=== PATIENT | female | born 1960 | race Caucasian/White ===

== ENCOUNTER 2021-11-16 19:24 | Emergency (ER) | payer BC ==
--- OUTSIDE RECORDS SUMMARY | 2021-11-16 19:27 | XMS REPORT | Continuity of Care Document ---
:1960 Author Organization [facility] t Address [address] [place] [address] Care Team Providers Name Role Phone Napoleon GOFF Primary Care Physician Unavailable Isra Wilhelm Attending Clinician Unavailable ERICK Attending Clinician Unavailable Napoleon Suero Attending Clinician Napoleon PINEDA Attending Clinician Unavailable John Saba Attending Clinician Unavailable John Saba Admitting Clinician Unavailable Payers Payer Name Policy Type Policy Number Effective Date Expiration Date S aruna [employer] [place] - [id number] 2017 00:00:00 OUT OF STATE Problems Condition Condition Condition Status Onset Resolution Last Treating Co mments Source Name Details Category Date Date Treatment Clinician Date Decreased 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:00: [place] of right of right 00 Medica l hand hand Branch S/P S/P Disease Active 2016-09 Univers cubital cubital 0-24 ity of tunnel tunnel 00:00: [place] release release 00 Medical Branch S/P carpal S/P carpal Disease Active 2016-09 U nivers tunnel tunnel 0-24 ity of release release 00:00: [place] 00 Medical Branch Allergies, Adverse Reactions, Alerts Allergy Allergy Status Severity Reaction(s) Onset Inactive Treating Comm ents Source Name Type Date Date Clinician Greg Propensi Active Swelling Swelling [place] hoxazole ty to 05-29 face ity of adverse 00:00: [place] reaction 00 Medical s Branch SULFAMET DRUG Active High Swelling Univer s HOXAZOLE INGREDI 05-29 ity of 00:00: [place] 00 Medical Branch sulfamet DA Active [facility] hoxazole 12-23 [place] 00:00: d 00 [facility] trimetho DA Active [facility] prim 4- [place] 00:00: d 00 [facility] sulfamet DA Active [place] [facility] hoxazole 12-23 [place] 00:00: d 00 [facility] trimetho DA Active [place] [facility] prim 4-02 [place] 00:00: d 00 [facility] Social History Social Habit Start Date Stop Date Quantity Comments Source Tobacco use and 2019-06-29 2019-06-29 Never used [facility] exposure 00:00:00 00:00:00 Medical Branch Sex [birth year] [facility] 00:00:00 00:00:00 Medical Branch Smoking Status Start Date Stop Date Source Never smoker [facility] Medical Branch Medications Ordered Filled Start Stop Current Ordering Indication Dosage Frequency Signature Comments Components Source Medication Medication Date Date Medication? Clinician (SIG) Name Name Amlodipine- Yes 1{tbl} Take 1 [place] Olmesartan 2-20 tablet by it[place] of 5-40 mg [place] 14:27[place] cholecalcif Yes 1000U Take 1,000 Univers kristen, 2-20 Units by [place] of vitamin D3, 14:27[place] 1[place] 15 Medical tablet Branch Amlodipine- Yes 1{tbl} Take 1 [place] Olmesartan 2-20 tablet by ity of 5-40 mg Tab 14:27[place] cholecalcif Yes 1000U Take 1,000 [facility] kristen, 2-20 Units by [place] of vitamin D3, 14:27[place] 1[place] 15 Medical tablet Branch cephALEXin 2021- Yes [id number] 500mg Take 1 Univers 500 mg -11-20 capsule by ity of capsule 00:00: 05:59 mouth 2 [place] 00 :00 (two) Medical times Branch daily for 7 days. cephALEXin 2021- Yes [id number] 500mg Take 1 Univers 500 mg -11-20 capsule by ity of capsule 00:00: 05:59 mouth 2 [place] 00 :00 (two) Medical times Branch daily for 7 days. phenazopyri 2018-09 Yes [id number] 200mg Take 2 Univers dine 0-07 tablets by ity of (PYRIDIUM) 00:00[place] 100 mg 00 (three) Medical tablet times Branch daily as needed for Pain (scale 1-3). phenazopyri 2018-09 Yes [id number] 200mg Take 2 Univers dine 0-07 tablets by ity of (PYRIDIUM) 00:00[place] 100 mg 00 (three) Medical tablet times Branch daily as needed for Pain (scale 1-3). Vital Signs Vital Name Observation Time Observation Value Comments Source Systolic blood 2021-11-12 20:27:00 135 mm[Hg] [facility] Diastolic blood 2021-11-12 20:27:00 82 mm[Hg] [facility] Heart rate 2021-11-12 20:24:00 86 /min [facility] Body temperature 2021-11-12 20:24:00 36.61 [facility] Body height 2021-11-12 20:24:00 162.6 cm [facility] Body weight 2021-11-12 20:24:00 57.607 kg [facility] BMI 2021-11-12 20:24:00 21.80 kg/m2 [facility] Oxygen saturation in 2021-11-12 20:24:00 99 /min [facility] blood by [facility] [place] [facility] Pulse oximetry Branch Procedures Procedure Date / Time Performed Performing Clinician Mine GALICIAB 2021-11-12 21:02:00 [facility] POCT URINALYSIS 2021-11-12 20:32:00 Rimma Pineda [facility] Encounters Start End Encounter Admission Attending Care Care Encounter Source Date/Time Date/Time Type Type Clinicians Facility Department ID 2021-11-16 Outpatient Wilhelm, Na STLMLC STLMLC [id number] [facility] 09:40:02 [facility] 2021-10-18 Outpatient Wilhelm, Na STLMLC STLMLC [id number] [facility] 14:22:23 [id number] [facility] 2021-10-18 Outpatient Wilhelm, Na STLMLC STLMLC [id number] [facility] [address] 14:07:55 [id number] [facility] 2021-11-16 2021-11-16 Outpatient R [facility] [id number] Univers 19:30:00 19:30:00 [id number] [facility] [place] 2021-11-16 2021-11-16 [facility] [id number] Univers 19:30:00 19:30:00 SOFIA [facility] [place] 2021-11-14 2021-11-14 ambulatory STLMLC STLC [id number] [facility] 2021-11-12 2021-11-12 [facility] [id number] Univers 14:47:02 23:59:00 Encounter [facility] [id number] ity of [place] [id number] [place]?BLEA [id number] [facility] [address] MEDICAL OFFICE BUILDING 2021-11-12 2021-11-12 Urgent [facility] [id number] Univers 14:40:00 15:17:37 [facility] [id number] ity of [place] [id number] [place]?BLEA [id number] Me dical [address] MEDICAL OFFICE BUILDING 2021-11-12 2021-11-12 Outpatient R MIRIAM [facility] [id number] Univers 14:40:00 15:17:37 RIMMA donny akbar dionisio [facility] 2019-12-01 2019-12-01 Outpatient NITIN Pena [id number] [facility] 12:00:00 12:00:00 Cit[place] [id number] [facility] Results Test Description Test Time Test Comments Results Result Comments Source POCT URINALYSIS W SPECIFIC GRAVITY 2021-11-12 20:39:00 Test Item Value Reference Range Interpretation Comme nts POCT U SP GRAV (test code = 3255) 1.010 mg/dl 1.005-1.025 POCT PH U (test code = 3254) 6 mg/dl 5-8 POCT U LEUK EST (test code = 3263) Negative - Negative POCT U NIT (test code = 3262) negative Negative - Negative POCT U PROT (test code = 3259) trace Negative - Negative POCT U GLU (test code = 3256) negative Negative - Negative POCT U KETONE (test code = 3258) negative Negative - Negative POCT U UROBILI (test code = 3260) negative 0.2-1 POCT U BILI (test code = 3261) negative Negative - Negative POCT U BLD (test code = 3257) Negative - Negative POCT U COLOR (test code = 3266) pale yellow POCT U APPEAR (test code = 3267) clear Lab Interpretation (test code = 64079-4) Abnormal [facility]
[2021-11-16 20:32] LABS: Urine Blood 1+ (Negative); Urine Glucose Negative (Negative); Urine Protein Negative (Negative); Urine pH 5.5 (5.0-7.0)
[2021-11-16 20:33] LABS: Absolute Lymphocytes (CBC) 0.7 K/uL (0.7-4.9); Hematocrit 38.9 % (36.0-45.0); Lymphocytes % 7.3 % (15.3-44.8); MPV 7.7 fL (7.6-11.3); RBC Red Blood Cell Count 4.35 M/uL (3.86-4.86)
[2021-11-16] MEDS ORDERED: NA CHLORIDE 0.9% 1,000 ML ONE (20:41)
--- NOTE | 2021-11-16 20:43 | RAD REPORT ---
EXAM DESCRIPTION: CTStone Protocol - 11/16/2021 8:34 pm CLINICAL HISTORY: flank pain, back pain, hx of stones COMPARISON: Stone Protocol dated 09/18/2019 TECHNIQUE: CT of the abdomen and pelvis was performed. All CT scans are performed using dose optimization technique as appropriate and may include automated exposure control or mA/KV adjustment according to patient size. FINDINGS: Lower chest: Asymmetric soft tissue in the left breast. The right breast is not completely imaged for comparison. Liver: No acute abnormality or suspicious lesions. Biliary: Cholecystectomy Stomach: No significant focal abnormality. Duodenum: No significant focal abnormality. Pancreas: No significant abnormality. Spleen: No significant abnormality. Adrenal: No suspicious lesions. Kidney/ureter: No hydronephrosis. No renal calculi. Left renal cyst. Retroperitoneum: No retroperitoneal adenopathy. Vascular: No aneurysm. Atherosclerosis . Bowel: No significant focal abnormality. Normal appendix. Peritoneum: No ascites or free air. Bladder: Grossly unremarkable. Reproductive: No adnexal masses. Hysterectomy. Bones: No acute fracture. Other: n/a IMPRESSION: No acute intra-abdominal or pelvic finding. No urinary tract calculi identified. Dense left breast tissue. The right breast is only partially imaged and therefore no comparison is pr esent . Consider diagnostic mammography if the patient has not had routine screening.
[2021-11-16 20:58] LABS: Blood Morphology Comment NOT SEEN (NOT SEEN); Platelet Estimate ADEQ; White Blood Cell Scan OK (OK)
[2021-11-16 21:00] LABS: Urine Bacteria 20-50 /HPF (<20); Urine Mucus 2+ /HPF (NONE SEEN)
[2021-11-16 21:39] LABS: ALT/SGPT 33 U/L (12-78); AST/SGOT 26 U/L (15-37); Albumin 3.7 g/dL (3.4-5.0); Alkaline Phosphatase 91 U/L (45-117); BUN Blood Urea Nitrogen 20 mg/dL (7-18); Bicarbonate 26 mmol/L (21-32); Bilirubin Total 0.3 mg/dL (0.2-1.0); Glucose Level 100 mg/dL (74-106); Lipase 164 U/L (73-393); Potassium 3.4 mmol/L (3.5-5.1); Protein, Total 7.4 g/dL (6.4-8.2); Sodium Level 138 mmol/L (136-145)
[2021-11-16 21:43] LABS: Bilirubin Direct < 0.1 mg/dL (0-0.2)
--- NOTE | 2021-11-16 22:21 | ER ---
Nurse's Notes [facility] Name: Patsy Eric Age: 61 yrs Sex: Female : 1960 Arrival Date: 11/16/2021 Time: 19:25 Bed 23 Private MD: Diagnosis: Tachycardia, unspecified;Dehydration;UTI/ Urinary tract infection, site not specified Presentation: 11/16 19:33 Chief complaint: Patient states: I went to my Dr. for shots in my back they gave me 2 vc1 shots in my back around 11. Around 4 I started feeling weird, my arms started aching and my hands were cold. I couldn't seem to get them warm. Then I had 2 sharp pains in my chest. I went to [facility] urgent care and my heart rate was 130 so they told me to come to the ER. 19:36 Coronavirus screen: Vaccine status: Patient reports receiving the 1st dose of the Covid vc1 vaccine. J\T\J At this time, the client does not indicate any symptoms associated with coronavirus-19. Ebola Screen: No symptoms or risks identified at this time. Initial Sepsis Screen: Does the patient meet any 2 criteria? HR > 90 bpm. No. Patient's initial sepsis screen is negative. Does the patient have a suspected source of infection? No. Patient's initial sepsis screen is negative. Risk Assessment: Do you want to hurt yourself or someone else? Patient reports no desire to harm self or others. Onset of symptoms was November 16, 2021 at 16:00. 19:36 Method Of Arrival: Ambulatory vc1 19:36 Acuity: YONI 3 vc1 Triage Assessment: 19:37 General: Appears in no apparent distress. Behavior is calm, cooperative, appropriate vc1 for age. Pain: Complains of pain in thoracic area Pain does not radiate. Pain currently is 3 out of 10 on a pain scale. Neuro: No deficits noted. Cardiovascular: Reports palpitations. Cardiovascular: Patient's skin is warm and dry. Chest pain 2 sharp pains across the chest. Respiratory: No deficits noted. Historical: - Allergies: 19:37 Bactrim; vc1 - Home Meds: 19:37 olmesartan 5 mg oral tab [Active]; amlodipine 5 mg tab 1 tab once daily [Active]; vc1 cephalexin 125 mg Oral TbDP [Active]; - PMHx: 19:37 Hypertensive disorder; Kidney stone; vc1 - PSHx: 19:37 Cholecystectomy; partial hysterectomy; vc1 - Immunization history:: Adult Immunizations up to date, Client reports receiving the Marcello \T\ Marcello single-dose vaccine. Flu vaccine is not up to date. - Social history:: Smoking status: Patient denies any tobacco usage or history of. - Family history:: not pertinent. - Hospitalizations: : No recent hospitalization is reported. Screenin:56 Abuse screen: Denies threats or abuse. Nutritional screening: No deficits noted. ss7 Tuberculosis screening: No symptoms or risk factors identified. Fall Risk IV access (20 points). Assessment: 22:37 General: Appears in no apparent distress. comfortable, Behavior is calm, cooperative, ss7 appropriate for age. Neuro: No deficits noted. 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 Gait is steady. Cardiovascular: Heart tones S1 S2 Rhythm is sinus tachycardia. Respiratory: Breath sounds are clear bilaterally. GI: Bowel sounds present X 4 quads. Abd is soft and non tender. : No deficits noted. EENT: No deficits noted. Derm: No deficits noted. Musculoskeletal: No deficits noted. Vital Signs: 19:36 BP 138 / 76; Pulse 122; Resp 18; Temp 98.8; Pulse Ox 100% ; Weight 58.06 kg; Height 5 vc1 ft. 4 in. (162.56 cm); Pain 3/10; 20:58 BP 132 / 74; Pulse 94; rn 21:56 BP 122 / 64; Pulse 92; Resp 18; Pulse Ox 100% ; ss7 19:36 Body Mass Index 21.97 (58.06 kg, 162.56 cm) vc1 ED Course: 19:25 Patient arrived in ED. ja2 19:37 Triage completed. vc1 19:37 Arm band placed on left wrist. vc1 19:43 Prasad Dan MD is Attending Physician. rn 19:45 Shari Pedersen, RELL is Primary Nurse. ss7 20:34 CT Stone Protocol In Process Unspecified. EDMS 20:34 Urine Dipstick-Ancillary Sent. ss7 20:34 Troponin High Sensitivity Sent. ss7 20:34 Basic Metabolic Panel Sent. ss7 20:34 Urine Microscopic Only Sent. ss7 20:35 Liver (Hepatic) Function Sent. ss7 20:35 Lipase Sent. ss7 20:35 CBC with Automated Diff Sent. ss7 20:35 TSH Sent. ss7 20:35 T4 Free Sent. ss7 20:35 Procalcitonin Sent. ss7 20:35 Blood Culture Adult (2) Sent. ss7 20:35 Hepatic Function Sent. ss7 20:35 Lipase Sent. ss7 20:35 Urine Microscopic Only Sent. ss7 20:35 Basic Metabolic Panel Sent. ss7 20:35 CBC with Diff Sent. ss7 21:56 Patient has correct armband on for positive identification. Placed in gown. Bed in low ss7 position. Call light in reach. 21:56 No provider procedures requiring assistance completed. Inserted saline lock: 20 gauge ss7 in left antecubital area, using aseptic technique. 22:22 Urine Culture Sent. ss7 22:48 IV discontinued, intact. ss7 Administered Medications: 20:42 Drug: NS 0.9% 1000 ml Route: IV; Rate: 1000 ml; Site: left antecubital; ss7 22:30 Drug: Rocephin (cefTRIAXone) 1 grams Route: IV; Rate: calculated rate; Site: left ss7 antecubital; 22:38 Follow up: Response: No adverse reaction ss7 22:48 Follow up: IV Status: Completed infusion; IV Intake: 10ml lr4 Intake: 22:48 IV: 10ml; Total: 10ml. lr4 Outcome: 22:20 Discharge ordered by . rn 22:47 Discharged to home ss7 22:47 Condition: good 22:47 Discharge instructions given to patient, Prescriptions given X 1. 22:49 Patient left the ED. ss7 Signatures: Dispatcher [employer] EDMS Prasad Dan MD MD rn Alexander, Jessica ja2 Calcote, Vanessa RN RN vc1 Shari Pedersen RN RN ss7 Estela Schultz RN RN lr4
--- NOTE | 2021-11-16 22:21 | EDPHYS ---
Physician Documentation [facility] Name: Patsy Eric Age: 61 yrs Sex: Female : 1960 Arrival Date: 11/16/2021 Time: 19:25 Bed 23 Private MD: ED Physician Prasad Dan HPI: 11/16 20:17 This 61 yrs old Female presents to ER via Ambulatory with complaints of Numbness Of rn Arm, NUMBNESS OF LEGS, FAST HEART RATE. 20:18 The patient presents with a history of heart racing. Context: The symptoms occur at rn rest. Onset: The symptoms/episode began/occurred today. Duration: The patient or guardian reports a single episode, that is still ongoing. Modifying factors: The symptoms are aggravated by nothing. The symptoms are alleviated by nothing. Associated signs and symptoms: Pertinent positives: nausea, diarrhea, back pain, Pertinent negatives: chest pain, fever, SOB. Severity of symptoms: At their worst the symptoms were moderate in the emergency department the symptoms are unchanged. The patient has not experienced similar symptoms in the past. The patient has been recently seen by a physician:. Pt reports seen earlier today for back pain with her doctor, given 2 shots in back, did fine, approx 4 hours or so later felt palpitations, heart racing. No chest pain or sob. Reports 1 week of feeling like possible kidney stone or UTI. Is currently on abx for UTI. Reports diarrhea. No vomiting. Had covid last month. No known sick contacts. . Historical: - Allergies: 19:37 Bactrim; vc1 - Home Meds: 19:37 olmesartan 5 mg oral tab [Active]; amlodipine 5 mg tab 1 tab once daily [Active]; vc1 cephalexin 125 mg Oral TbDP [Active]; - PMHx: 19:37 Hypertensive disorder; Kidney stone; vc1 - PSHx: 19:37 Cholecystectomy; partial hysterectomy; vc1 - Immunization history:: Adult Immunizations up to date, Client reports receiving the Marcello \\T\\ Marcello single-dose vaccine. Flu vaccine is not up to date. - Social history:: Smoking status: Patient denies any tobacco usage or history of. - Family history:: not pertinent. - Hospitalizations: : No recent hospitalization is reported. ROS: 20:18 Constitutional: Negative for fever, chills, and weight loss, Eyes: Negative for injury, rn pain, redness, and discharge, ENT: Negative for injury, pain, and discharge, Neck: Negative for injury, pain, and swelling, Cardiovascular: Negative for chest pain, palpitations, and edema, Respiratory: Negative for shortness of breath, cough, wheezing, and pleuritic chest pain, Abdomen/GI: Negative for abdominal pain, nausea, vomiting, diarrhea, and constipation, Back: + lower back pain : + dysuria MS/Extremity: Negative for injury and deformity, Skin: Negative for injury, rash, and discoloration, Neuro: + generalized weakness and all 4 extremities feel "heavy" Exam: 20:18 Constitutional: This is a well developed, well nourished patient who is awake, alert, rn and in no acute distress. Ambulatory to room without difficulty or assistance Head/Face: Normocephalic, atraumatic. Eyes: Periorbital areas with no swelling, redness, or edema. Neck: Trachea midline, no thyromegaly or masses palpated, and no cervical lymphadenopathy. Supple, full range of motion without nuchal rigidity, or vertebral point tenderness. No Meningismus. Cardiovascular: Tachycardic, regular Respiratory: No increased work of breathing, no retractions or nasal flaring. Abdomen/GI: Soft, non-tender Back: No spinal tenderness. No costovertebral tenderness. Full range of motion. Skin: Warm, dry MS/ Extremity: Pulses equal, no cyanosis. Neurovascular intact. Full, normal range of motion. Equal circumference. Neuro: Awake and alert, GCS 15, oriented to person, place, time, and situation. Cranial nerves II-XII grossly intact. Motor strength 5/5 in all extremities. Sensory grossly intact. Cerebellar exam normal. Normal gait. 20:31 ECG was reviewed by the Attending Physician. rn Vital Signs: 19:36 BP 138 / 76; Pulse 122; Resp 18; Temp 98.8; Pulse Ox 100% ; Weight 58.06 kg; Height 5 vc1 ft. 4 in. (162.56 cm); Pain 3/10; 20:58 BP 132 / 74; Pulse 94; rn 21:56 BP 122 / 64; Pulse 92; Resp 18; Pulse Ox 100% ; ss7 19:36 Body Mass Index 21.97 (58.06 kg, 162.56 cm) vc1 MDM: 19:43 Patient medically screened. rn 22:19 Differential diagnosis: arrythmia, dehydration, stress disorder, UTI, kidney stone. rn Data reviewed: vital signs, nurses notes, lab test result(s), EKG, radiologic studies, CT scan, and as a result, I will discharge patient. Counseling: I had a detailed discussion with the patient and/or guardian regarding: the historical points, exam findings, and any diagnostic results supporting the discharge/admit diagnosis, lab results, radiology results, the need for outpatient follow up, to return to the emergency department if symptoms worsen or persist or if there are any questions or concerns that arise at home. Response to treatment: the patient's symptoms have markedly improved after treatment, and as a result, I will discharge patient. Special discussion: I discussed with the patient the need to follow-up with the PCP/specialist for the noted incidental finding on X-ray/CT scanning. Based on the history and exam findings, there is no indication for further emergent testing or inpatient evaluation. I discussed with the patient/guardian the need to see the OB Gyne specialist for further evaluation of the symptoms. I discussed with the patient/guardian the need to see the primary care provider for further evaluation of the symptoms. ED course: Pt with still signs of UTI, almost done with current prescription, will dc home with new abx for UTI. NO signs of sepsis. Neg for kidney stone or pyelo. Spoke with her regarding need for mammogram given asymmetry of breast tissue seen on CT scan today. HRimproved with fluids. . 11/16 19:53 Order name: CBC with Diff rn 11/16 19:53 Order name: Basic Metabolic Panel rn 11/16 19:53 Order name: Urine Microscopic Only rn 11/16 19:53 Order name: Hepatic Function rn 11/16 19:53 Order name: Lipase rn 11/16 19:53 Order name: Blood Culture Adult (2) rn 11/16 19:53 Order name: Procalcitonin; Complete Time: 22:06 rn 11/16 19:53 Order name: TSH; Complete Time: 22:06 rn 11/16 19:53 Order name: T4 Free; Complete Time: 22:06 rn 11/16 19:53 Order name: CBC with Automated Diff; Complete Time: 22:06 EDMS 11/16 19:53 Order name: Basic Metabolic Panel; Complete Time: 22:06 EDAL 11/16 19:53 Order name: Urine Microscopic Only; Complete Time: 22:06 EDAL 11/16 19:53 Order name: Liver (Hepatic) Function; Complete Time: 22:06 EDAL 11/16 19:53 Order name: Lipase; Complete Time: 22:06 EDAL 11/16 19:53 Order name: IV Start; Complete Time: 20:35 rn 11/16 19:53 Order name: Urine Dipstick-Ancillary (obtain specimen); Complete Time: 20:35 rn 11/16 19:53 Order name: CT Stone Protocol; Complete Time: 20:48 rn 11/16 19:53 Order name: Labs collected and sent; Complete Time: 20:35 11/16 19:53 Order name: EKG; Complete Time: 19:54 rn 11/16 19:53 Order name: EKG - Nurse/Tech; Complete Time: 20:35 rn 11/16 19:53 Order name: Cardiac monitoring; Complete Time: 20:35 rn 11/16 19:53 Order name: Troponin High Sensitivity; Complete Time: 22:06 11/16 20:32 Order name: Urine Dipstick-Ancillary EDAL 11/16 20:58 Order name: CBC Smear Scan; Complete Time: 22:06 EDAL 11/16 21:01 Order name: Urine Culture EDMS EC:31 Rate is 98 beats/min. Rhythm is regular. QRS Ulysses is Normal. NM interval is normal. QRS rn interval is normal. QT interval is normal. No Q waves. T waves are Normal. No ST changes noted. Clinical impression: Normal ECG. Interpreted by me. Reviewed by me. Administered Medications: 20:42 Drug: NS 0.9% 1000 ml Route: IV; Rate: 1000 ml; Site: left antecubital; ss7 22:30 Drug: Rocephin (cefTRIAXone) 1 grams Route: IV; Rate: calculated rate; Site: left [facility] antecubital; 22:38 Follow up: Response: No adverse reaction 7 22:48 Follow up: IV Status: Completed infusion; IV Intake: 10ml lr4 Disposition Summary: 11/16/21 22:20 Discharge Ordered Location: Home rn Problem: new rn Symptoms: have improved rn Condition: Stable rn Diagnosis - Tachycardia, unspecified rn - Dehydration rn - UTI/ Urinary tract infection, site not specified rn Followup: rn - With: Private Physician - When: As needed - Reason: Recheck today's complaints, Re-evaluation by your physician Discharge Instructions: - Discharge Summary Sheet rn - Dehydration, Adult rn - Mammogram rn - Urinary Tract Infection, Adult rn Forms: - Medication Reconciliation Form rn - Thank You Letter rn - Antibiotic pattern chart writer - Prescription Opioid Use rn Prescriptions: - Cipro 500 mg Oral Tablet - take 1 tablet by ORAL route every 12 hours for 7 days; 14 tablet; Refills: 0, rn Product Selection Permitted Signatures: Dispatcher [employer] EDPrasad Mir MD MD rn Olena Velarde RN RN vc1 Shari Pedersen RN RN ss7 Estela Schultz RN lr4
[2021-11-16] MEDS ORDERED: CEFTRIAXONE 1000 MG/VIAL ONE (22:24)
[2021-11-17 00:22] VITALS: TEMP 98.8; O2SAT 100
[2021-11-17 00:26] VITALS: BP 122/64
== END 2021-11-16 22:49 | disposition home or self-care (01) ==
LOC: ER 19:24
DX: E86.0 Dehydration (principal); N39.0 Urinary tract infection, site not specified; I10 Essential (primary) hypertension; Z87.442 Personal history of urinary calculi; Z88.1 Allergy status to other antibiotic agents
CPT/HCPCS: 96365; 87040 ×2; 87088; 85025; 87086; 80048; 36415; 80076; 84443; 84484; 84439; 83690; 84145; 76377; 74176; 99284; J7030; 81003; 81015